=== PATIENT | male | born 1970 | race Caucasian/White ===

== ENCOUNTER 2016-04-17 22:11 | Inpatient (IN) | payer BC ==
[~2016-04-17] VITALS: Ht 172.7 cm; Wt 91.3 kg
[~2016-04-17 22:11] MED LIST: ALBUTEROL0.09 MG/A1 INH; AUGMENTIN 875 M1 TAB PO; AUGMENTIN 875875 MG PO; AVELOX400 MG PO; CLARITIN10 MG PO; COMPAZINE10 MG PO; FLONASE ALLERG9.9 ML NS; GLUCOPHAGE500 MG PO; PHENERGAN W/DM120 ML PO; PRAVACHOL40 MG PO; PREDNISONE PO; PRINIVIL5 M1 PO; ROBITUSSIN AC 110 ML PO; TESSALON PERLE100 MG PO; VICODIN 5/500 505 MG PO; ZITHROMAX Z PA250 MG PO; ZYRTEC10 MG PO
[2016-04-17 22:41] VITALS: BP 88/54
[2016-04-17] MEDS ORDERED: LOW DOSE ASPIRI81 MG PO (22:42)
[2016-04-17] MEDS ORDERED: METFORMIN500 MG PO (22:42)
[2016-04-17 23:34] LABS: BASO % 0.4 % (0.0-1.0); EOS # 0.1 10*3/uL (0.0-0.4); EOS % 0.7 % (1.0-4.0); HEMATOCRIT 51.8 % (42.0-52.0); HEMOGLOBIN 17.5 g/dl (14.0-18.0); MEAN CELL VOLUME 89.2 fl (80.0-94.0); MEAN CORPUSCULAR HGB 30.1 pg (27.0-31.0); MEAN CORPUSCULAR HGB CONC 33.8 g/dl (33.0-37.0); MEAN PLATELET VOLUME 12.2 fl (9.6-12.3); MONO # 0.9 10*3/uL (0.1-1.0); MONO % 13.7 % (3.0-9.0); NEUT # 3.7 10*3/uL (2.3-7.9); NEUT % 55.2 % (47.0-73.0); PLATELET COUNT AUTOMATED 151 10*3/uL (130-400); RED BLOOD COUNT 5.81 10*6/uL (4.50-5.90); RED CELL DISTRI WIDTH 12.7 % (0-14.5); WHITE BLOOD COUNT 6.8 10*3/uL (4.8-10.8)
[2016-04-17 23:51] LABS: ALBUMIN 3.7 gm/dl (3.1-4.5); ALKALINE PHOSPHATASE 63 U/L (45-117); BILIRUBIN, TOTAL 0.4 mg/dl (0.2-1.0); BUN 19 mg/dl (7-24); CARBON DIOXIDE 25 mmol/L (21-32); CHLORIDE 106 mmol/L (98-107); CPK 31 U/L (39-308); EST GLOM FILT AFRICAN AMERICAN > 60 ml/min; GLUCOSE 97 mg/dL (65-99); POTASSIUM 3.9 mmol/L (3.5-5.1); SGOT/AST 21 IU/L (3-35); SGPT/ALT 37 U/L (12-78); SODIUM 141 mmol/L (136-145)
[2016-04-17 23:52] LABS: CKMB < 0.5 ng/ml (0.5-3.6); INTERNATIONAL NORM RATIO 1.1 (2.0-3.5); PROTHROMBIN TIME 11.3 SECONDS (9.0-12.4); TROPONIN I < 0.015 ng/ml (<0.5)
[2016-04-18 02:00] VITALS: BP 88/57
[2016-04-18 02:45] VITALS: BP 108/61; BP 108/62
[2016-04-18 06:23] LABS: BASO % 0.6 % (0.0-1.0); EOS % 0.6 % (1.0-4.0); HEMATOCRIT 47.5 % (42.0-52.0); HEMOGLOBIN 16.1 g/dl (14.0-18.0); LYMPH % 37.1 % (27.0-41.0); MEAN CELL VOLUME 88.8 fl (80.0-94.0); MEAN CORPUSCULAR HGB 30.1 pg (27.0-31.0); MEAN CORPUSCULAR HGB CONC 33.9 g/dl (33.0-37.0); MONO # 0.8 10*3/uL (0.1-1.0); MONO % 14.8 % (3.0-9.0); NEUT # 2.5 10*3/uL (2.3-7.9); NEUT % 46.7 % (47.0-73.0); PLATELET COUNT AUTOMATED 144 10*3/uL (130-400); RED BLOOD COUNT 5.35 10*6/uL (4.50-5.90); RED CELL DISTRI WIDTH 12.6 % (0-14.5); WHITE BLOOD COUNT 5.3 10*3/uL (4.8-10.8)
[2016-04-18 06:34] LABS: CPK 29 U/L (39-308)
[2016-04-18 06:41] LABS: TROPONIN I < 0.015 ng/ml (<0.5)
[2016-04-18 07:16] LABS: ALBUMIN 3.2 gm/dl (3.1-4.5); ALKALINE PHOSPHATASE 51 U/L (45-117); BILIRUBIN, TOTAL 0.3 mg/dl (0.2-1.0); BUN 17 mg/dl (7-24); CARBON DIOXIDE 27 mmol/L (21-32); CHLORIDE 108 mmol/L (98-107); EST GLOM FILT AFRICAN AMERICAN > 60 ml/min; FREE T4 1.34 ng/dl (0.76-1.46); GLUCOSE 95 mg/dL (65-99); MAGNESIUM 2.2 mg/dL (1.5-2.1); SGOT/AST 23 IU/L (3-35); SGPT/ALT 32 U/L (12-78); SODIUM 142 mmol/L (136-145); TOTAL PROTEIN 6.2 gm/dL (6.4-8.2)
[2016-04-18 08:00] VITALS: BP 90/52
[2016-04-18 11:25] LABS: BILIRUBIN NEGATIVE (NEGATIVE); BLOOD NEGATIVE (NEGATIVE); CLARITY CLEAR (CLEAR); COLOR YELLOW (YELLOW); GLUCOSE NEGATIVE (NEGATIVE); KETONE NEGATIVE (NEGATIVE); LEUKO ESTERASE NEGATIVE (NEGATIVE); NITRITE NEGATIVE (NEGATIVE); PH 5.5 (5.0-9.0); PROTEIN NEGATIVE (NEGATIVE); SPECIFIC GRAVITY 1.025 (1.005-1.030); UROBILINOGEN 0.2 E.U./dl (0.2-1.0)
[2016-04-18 11:43] LABS: URINE REFLEX COMMENT NO (NO); WBC 0-2 wbc/hpf (0-5)
[2016-04-18 12:00] VITALS: BP 104/61
[2016-04-18 16:00] VITALS: BP 103/57
[2016-04-18 20:00] VITALS: BP 104/58
[2016-04-19] VITALS: BP 92/52
[2016-04-19 06:40] LABS: BUN 11 mg/dl (7-24); CARBON DIOXIDE 24 mmol/L (21-32); CHLORIDE 112 mmol/L (98-107); EST GLOM FILT AFRICAN AMERICAN > 60 ml/min; GLUCOSE 85 mg/dL (65-99); POTASSIUM 4.2 mmol/L (3.5-5.1); SODIUM 144 mmol/L (136-145)
[2016-04-19 07:18] LABS: HEMOGLOBIN A1c 5.5 % (4.8-5.6)
[2016-04-19 08:00] VITALS: BP 108/64
[2016-04-19] MEDS ORDERED: LEVAQUIN750 M1 PO (10:30)
== END 2016-04-19 11:18 | disposition home or self-care (01) | DRG 871 ==
LOC: ED 22:11 → EDHOLD 04-18 01:20 → 4E 04-18 02:06
PROVIDERS: Emergency Medicine; Internal Medicine; Student in an Organized Health Care Education/Training Program
DX: A41.9 Sepsis, unspecified organism (principal); J18.9 Pneumonia, unspecified organism; E10.8 Type 1 diabetes mellitus with unspecified complications; E44.1 Mild protein-calorie malnutrition; R55 Syncope and collapse; I95.0 Idiopathic hypotension; E83.51 Hypocalcemia; J30.2 Other seasonal allergic rhinitis; E66.9 Obesity, unspecified; I10 Essential (primary) hypertension; E78.5 Hyperlipidemia, unspecified; Z83.3 Family history of diabetes mellitus; Z72.0 Tobacco use; Z79.82 Long term (current) use of aspirin; Z79.84 Long term (current) use of oral hypoglycemic drugs; Z79.899 Other long term (current) drug therapy; Z98.52 Vasectomy status; Z68.30 Body mass index [BMI] 30.0-30.9, adult

== ENCOUNTER 2016-07-26 17:23 | Emergency (ER) | payer BC ==
[~2016-07-26] VITALS: Ht 172.7 cm; Wt 86.2 kg
[~2016-07-26 17:23] MED LIST changes: +LEVAQUIN750 M1 PO; +LOW DOSE ASPIRI81 MG PO; +METFORMIN500 MG PO
[2016-07-26 17:48] LABS: BASO # 0.1 10*3/uL (0.0-0.1); BASO % 0.7 % (0.0-1.0); EOS # 0.3 10*3/uL (0.0-0.4); EOS % 2.6 % (1.0-4.0); HEMATOCRIT 49.8 % (42.0-52.0); HEMOGLOBIN 16.8 g/dl (14.0-18.0); MEAN CELL VOLUME 88.8 fl (80.0-94.0); MEAN CORPUSCULAR HGB 29.9 pg (27.0-31.0); MEAN CORPUSCULAR HGB CONC 33.7 g/dl (33.0-37.0); MEAN PLATELET VOLUME 11.8 fl (9.6-12.3); MONO # 0.9 10*3/uL (0.1-1.0); MONO % 6.8 % (3.0-9.0); NEUT # 7.3 10*3/uL (2.3-7.9); NEUT % 57.6 % (47.0-73.0); PLATELET COUNT AUTOMATED 212 10*3/uL (130-400); RED BLOOD COUNT 5.61 10*6/uL (4.50-5.90); RED CELL DISTRI WIDTH 13.1 % (0-14.5); WHITE BLOOD COUNT 12.6 10*3/uL (4.8-10.8)
[2016-07-26 18:03] LABS: ALBUMIN 3.8 gm/dl (3.1-4.5); ALKALINE PHOSPHATASE 71 U/L (45-117); BILIRUBIN, TOTAL 0.2 mg/dl (0.2-1.0); BUN 18 mg/dl (7-24); CARBON DIOXIDE 25 mmol/L (21-32); CHLORIDE 109 mmol/L (98-107); EST GLOM FILT AFRICAN AMERICAN > 60 ml/min; GLUCOSE 119 mg/dL (65-99); POTASSIUM 4.3 mmol/L (3.5-5.1); SGOT/AST 12 IU/L (3-35); SGPT/ALT 25 U/L (12-78); SODIUM 144 mmol/L (136-145); TOTAL PROTEIN 7.3 gm/dL (6.4-8.2)
[2016-07-26 18:08] LABS: BILIRUBIN NEGATIVE (NEGATIVE); BLOOD 2+ (NEGATIVE); CLARITY SL CLOUDY (CLEAR); COLOR YELLOW (YELLOW); GLUCOSE NEGATIVE (NEGATIVE); KETONE NEGATIVE (NEGATIVE); LEUKO ESTERASE NEGATIVE (NEGATIVE); NITRITE NEGATIVE (NEGATIVE); PH 5.5 (5.0-9.0); PROTEIN NEGATIVE (NEGATIVE); SPECIFIC GRAVITY >= 1.030 (1.005-1.030); UROBILINOGEN 0.2 E.U./dl (0.2-1.0)
[2016-07-26 18:17] LABS: BACTERIA 2+; CALCIUM OXALATE CRYSTALS 1+; URINE REFLEX COMMENT YES (NO); WBC 0-2 wbc/hpf (0-5)
[2016-07-26] MEDS ORDERED: Motrin,Rufen800 MG PO (19:44)
[2016-07-26] MEDS ORDERED: ZOFRAN ODT4 MG SL (19:44)
[2016-07-26] MEDS ORDERED: HYDROCODONE BIT1 T11 PO (19:44)
[2016-07-26] MEDS ORDERED: FLOMAX0.4 MG PO (19:44)
== END 2016-07-26 19:47 | disposition home or self-care (01) ==
LOC: ED 17:23
PROVIDERS: Physician Assistant
DX: N20.1 Calculus of ureter (principal); F17.200 Nicotine dependence, unspecified, uncomplicated; Z87.442 Personal history of urinary calculi; Z79.82 Long term (current) use of aspirin

== ENCOUNTER 2017-05-10 19:09 | Emergency (ER) | payer BC ==
[~2017-05-10] VITALS: Ht 172.7 cm; Wt 88.5 kg
[~2017-05-10 19:09] MED LIST changes: +FLOMAX0.4 MG PO; +HYDROCODONE BIT1 T11 PO; +Motrin,Rufen800 MG PO; +ZOFRAN ODT4 MG SL
[2017-05-10 19:40] LABS: BASO % 0.6 % (0.0-1.0); EOS # 0.1 10*3/uL (0.0-0.4); EOS % 1.5 % (1.0-4.0); HEMOGLOBIN 17.2 g/dl (14.0-18.0); LYMPH # 1.7 10*3/uL (1.3-4.4); LYMPH % 25.2 % (27.0-41.0); MEAN CELL VOLUME 86.8 fl (80.0-94.0); MEAN CORPUSCULAR HGB 29.9 pg (27.0-31.0); MEAN CORPUSCULAR HGB CONC 34.4 g/dl (33.0-37.0); MEAN PLATELET VOLUME 11.3 fl (9.6-12.3); MONO # 1.1 10*3/uL (0.1-1.0); MONO % 16.2 % (3.0-9.0); NEUT # 3.7 10*3/uL (2.3-7.9); NEUT % 56.2 % (47.0-73.0); PLATELET COUNT AUTOMATED 174 10*3/uL (130-400); RED BLOOD COUNT 5.76 10*6/uL (4.50-5.90); RED CELL DISTRI WIDTH 12.5 % (0-14.5); WHITE BLOOD COUNT 6.6 10*3/uL (4.8-10.8)
[2017-05-10 20:07] LABS: ALBUMIN 3.6 gm/dl (3.1-4.5); ALKALINE PHOSPHATASE 64 U/L (45-117); BUN 13 mg/dl (7-24); CHLORIDE 106 mmol/L (98-107); CREATININE 1.05 mg/dL (0.70-1.30); POTASSIUM 4.1 mmol/L (3.5-5.1); SGOT/AST 20 IU/L (3-35); SGPT/ALT 50 U/L (12-78); SODIUM 139 mmol/L (136-145); TOTAL PROTEIN 7.2 gm/dL (6.4-8.2)
[2017-05-10 20:08] LABS: TROPONIN I < 0.015 ng/ml (<0.045)
[2017-05-10] MEDS ORDERED: LEVAQUIN750 M1 PO (20:42)
== END 2017-05-10 20:59 | disposition home or self-care (01) ==
LOC: ED 19:09
PROVIDERS: Student in an Organized Health Care Education/Training Program
DX: J11.1 Influenza due to unidentified influenza virus with other respiratory manifestations (principal); F17.200 Nicotine dependence, unspecified, uncomplicated; Z79.82 Long term (current) use of aspirin; Z79.899 Other long term (current) drug therapy; E66.9 Obesity, unspecified; Z68.39 Body mass index [BMI] 39.0-39.9, adult

== ENCOUNTER 2018-05-21 11:31 | Emergency (ER) | payer BC ==
[~2018-05-21] VITALS: Wt 90.7 kg
[2018-05-21] MEDS ORDERED: FLONASE ALLERG9.9 ML NAS (11:58)
[2018-05-21] MEDS ORDERED: PREDNISONE10 MG PO (11:58)
[2018-05-21] MEDS ORDERED: CLARITIN10 MG PO (11:58)
[2018-05-21] MEDS ORDERED: MUCINEX DM ER1 EACH PO (11:58)
[2018-07-03] MEDS ORDERED: AMOXICILLIN500 M2 PO (14:39)
[2018-07-03] MEDS ORDERED: TESSALON PERLE100 M1 PO (14:41)
== END 2018-05-21 13:52 | disposition home or self-care (01) ==
LOC: ED 11:31
DX: B34.9 Viral infection, unspecified (principal); R03.0 Elevated blood-pressure reading, without diagnosis of hypertension; E66.9 Obesity, unspecified; F17.200 Nicotine dependence, unspecified, uncomplicated; Z79.82 Long term (current) use of aspirin

== ENCOUNTER 2022-07-07 09:04 | Emergency (ER) | payer BC ==
[~2022-07-07] VITALS: Wt 99.8 kg
[~2022-07-07 09:04] MED LIST changes: +AMOXICILLIN500 M2 PO; +FLONASE ALLERG9.9 ML NAS; +MUCINEX DM ER1 EACH PO; +PREDNISONE10 MG PO; +TESSALON PERLE100 M1 PO
[2022-07-07] MEDS ORDERED: PREDNISONE50 MG PO (11:29)
[2022-07-07] MEDS ORDERED: DOXYCYCLINE HY100 M3 PO (11:29)
== END 2022-07-07 11:34 | disposition home or self-care (01) ==
LOC: ED 09:04
DX: J40 Bronchitis, not specified as acute or chronic (principal); E11.9 Type 2 diabetes mellitus without complications; Z20.822 Contact with and (suspected) exposure to COVID-19; Z98.890 Other specified postprocedural states

== ENCOUNTER 2025-02-28 19:50 | Emergency (ER) | payer BC ==
[~2025-02-28] VITALS: Ht 172.7 cm; Wt 97.5 kg
[~2025-02-28 19:50] MED LIST changes: +DOXYCYCLINE HY100 M3 PO; +PREDNISONE50 MG PO
[2025-02-28] MEDS ORDERED: ASPIRIN, CHEWABLE 81 MG TAB PO ONE (20:00)
[2025-02-28] MEDS ORDERED: TICAGRELOR 90 MG TABLET PO ONE (20:00)
[2025-02-28] MEDS ORDERED: HEPARIN SODIUM 5,000 UNIT/ML VIAL IV ONE (20:00)
[2025-02-28] MEDS ORDERED: Ondansetron Hydrochloride 4 MG/2 ML VIAL IV ONE (20:05)
[2025-02-28 20:21] LABS: MEAN CELL VOLUME 87.5 fl (80.0-94.0); MEAN CORPUSCULAR HGB 30.9 pg (27.0-31.0); MEAN PLATELET VOLUME 11.2 fl (9.6-12.3); NUCLEATED RED BLOOD CELL 0.0 % (0.0-0.0); NUCLEATED RED BLOOD CELL 0.0 10*3/uL (0.0-0.0); PLATELET COUNT AUTOMATED 227 10*3/uL (130-400); RED CELL DISTRI WIDTH 12.6 % (0-14.5)
[2025-02-28 20:25] LABS: MANUAL DIFF REFLEX YES
[2025-02-28 20:34] LABS: ACT PARTIAL THROMBO TIME 27.5 SECONDS (20.0-32.1)
[2025-02-28 20:40] LABS: BASOPHILS 1 % (0-1)
[2025-02-28 20:41] LABS: PLATELET SUFFICIENCY NORMAL (NORMAL)
[2025-02-28 20:43] LABS: BUN 14 mg/dl (9-23); SGPT/ALT 36 U/L (5-49)
[2025-02-28] MEDS ORDERED: fentaNYL CITRATE/PF 50 MCG/ML SYRINGE ONE (21:40)
== END 2025-02-28 22:00 | disposition short-term general hospital (02) ==
LOC: ED 19:50
PROVIDERS: Emergency Medicine
DX: I21.29 ST elevation (STEMI) myocardial infarction involving other sites (principal); R11.2 Nausea with vomiting, unspecified; I10 Essential (primary) hypertension; E11.9 Type 2 diabetes mellitus without complications; F17.200 Nicotine dependence, unspecified, uncomplicated; Z79.84 Long term (current) use of oral hypoglycemic drugs